=== PATIENT | male | born 1995 | race Caucasian/White ===

== ENCOUNTER 2020-11-10 14:27 | Emergency (ER) | payer OTHER, SELFPAY ==
--- NOTE | ~2020-11-10 | XR_ITS ---
EXAMINATION: XR CHEST CLINICAL INFORMATION: Cough COMPARISON: None TECHNIQUE: Frontal view of the chest was obtained. FINDINGS: The cardiac and mediastinal contours are normal. The lungs are well inflated. The lungs are clear. There is no pleural effusion or pneumothorax. Bony structures are unremarkable. XR/XR chest 1V IMPRESSION: Well-inflated lungs. No evidence of pneumonia.
[2020-11-10 14:35] VITALS: BP 149/96; PULSE 115; RESP 22; TEMP 36.5; O2SAT 93; BMI 17.3
[2020-11-10 15:19] VITALS: PULSE 106; RESP 19; O2SAT 94
[2020-11-10] MEDS: Albuterol/Iprat 2.5/0.5MG 3 ML AMPUL.NEB INHALE ×2 (15:40→16:14)
[2020-11-10 15:41] VITALS: PULSE 101; O2SAT 94
--- NOTE | 2020-11-10 16:08 | PC.NURSE ---
NO DIFF BREATHING, NO RETRACTIONS OR NASAL FLARING. PT FINISHED UPDRAFT TX, SITTING HIGH FOWLERS TAKING SIPS OF WATER. 02 95%, HR 100, NAD AT THIS TIME.
[2020-11-10 16:15] VITALS: PULSE 110; O2SAT 97
--- NOTE | 2020-11-10 16:47 | ED.SOB ---
HPI - SOB/Dyspnea General Chief Complaint: Dyspnea Stated Complaint: asthma Time Seen by Provider: 11/10/20 14:54 History of Present Illness HPI Narrative: Patient complains of asthma flare up with wheezing and chest tightness and shortness of breath similar to other asthma flares, he used his pump and his machine with out significant relief and he comes to the ER feeling short of breath similar to prior asthma flares and wheezing, he has had some coughing, no fever no chills no sputum He denies any recent fever or upper respiratory infection or cough, no leg pain no leg swelling no calf pain Related Data Previous Rx's Medication Instructions Recorded albuterol sulfate 2 puff INHALATION Q4-6H PRN 5 Days 11/10/20 #8.5 g albuterol sulfate 2.5 mg INHALATION Q4H PRN #75 ml 11/10/20 fluticasone furoate-vilanterol 1 inh INHALATION Q24H #60 ea 11/13/20 [Breo Ellipta] prednisone 40 mg PO DAILY #10 tab 11/13/20 Allergies Allergy/AdvReac Type Severity Reaction Status Date / Time amoxicillin Allergy Unknown Anaphylaxis Verified 11/10/20 14:34 mold Allergy Unknown UNKNOWN Verified 11/10/20 14:34 penicillin V Allergy Unknown Anaphylaxis Verified 11/10/20 14:34 Penicillins [PENICILLINS] Allergy Unknown UNKNOWN Verified 11/10/20 14:34 cillins Allergy Unknown anaphylaxis Uncoded 04/05/13 00:00 Review of Systems Review of Systems: Positive for shortness of breath and wheezing Negatives are no fever no chills no dizziness no fainting no chest pain no palpitations no abdominal pain no nausea or vomiting no leg pain no calf pain no leg swelling no rash no numbness or weakness Yes all other systems are reviewed and are negative [facility] Past Medical History Source: nursing notes reviewed Medical History Asthma Social History Social History Household Members: Other Housing: Apartment Alcohol intake: never Smoking Status: Current every day smoker Tobacco Type: Cigarette Cigarettes Per Day: 4 Second Hand Smoke Exposure: Yes service: No Current occupational status: employed Physical Exam Vital Signs: Vital Signs: Last Vital Signs Temp 97.7 F 11/10/20 14:35 Pulse 99 11/10/20 16:50 Resp 18 11/10/20 16:50 BP 123/78 11/10/20 16:50 Pulse Ox 96 11/10/20 16:50 Body Mass Index 17.3 General appearance is no acute distress, calm and cooperative, a and O x3, speaking full sentences The pharynx is clear Neck is supple Respiratory there is prolonged expiration and significant bilateral wheezing, but good air movement, no respiratory distress The heart no murmur auscultated The abdomen is soft nontender Extremities no calf tenderness or swelling, no edema Skin no rash Neuro no focal deficit Course Course Course Narrative: Patient was treated with multiple nebs and steroid Chest x-ray did not show any evidence of pneumonia After treatment patient felt significant relief, his lung exam did show some residual wheezing but no longer prolonged expiration and there was good air movement, patient was speaking full sentences and had no worsening of shortness of breath with short ambulation and was discharged home Discharge Plan Discharge Clinical Impression: Asthma flare Qualifiers: Asthma severity: moderate Asthma persistence: unspecified Qualified Code(s): J45.901 - Unspecified asthma with (acute) exacerbation Patient Disposition: Home, Self-Care Additional Instructions: We treated with steroid and albuterol with very good improvement Because he wanted an antibiotic I gave you a prescription for Zithromax but I would advise waiting a day or 2 and see if all symptoms resolve as the asthma goes away Overuse of antibiotics can create resistance and make it difficult to treat should he get pneumonia Return to ER any time for difficulty breathing, any worse condition or any concerns Prescriptions: New albuterol sulfate 90 mcg/actuation HFA aerosol inhaler 2 puff inhalation Q4-6H PRN (Reason: shortness of breath or wheezing) 5 Days Qty: 8.5 RF: 0 albuterol sulfate 2.5 mg /3 mL (0.083 %) solution for nebulization 2.5 mg inhalation Q4H PRN (Reason: shortness of breath or wheezing) Qty: 75 RF: 0 No Action prednisone 20 mg tablet 40 mg PO DAILY Qty: 10 RF: 0 Breo Ellipta 100-25 mcg/dose blister with device 1 inh inhalation Q24H Qty: 60 RF: 0 Stand Alone Forms: Work/School Release Interventions: ED Discharge Assessment Last Done: 11/10/20 17:11 Discharge Date/Time: 11/10/20 17:14
[2020-11-10 16:50] VITALS: BP 123/78; PULSE 99; RESP 18; O2SAT 96
== END 2020-11-10 17:14 | disposition home or self-care (01) ==
PROVIDERS: Emergency Provider Emergency Medicine; PCP Internal Medicine
DX: J45.901 Unspecified asthma with (acute) exacerbation (principal); F17.210 Nicotine dependence, cigarettes, uncomplicated; Z71.6 Tobacco abuse counseling; Z79.899 Other long term (current) drug therapy
CPT/HCPCS: 71045; 96372; 99284; J1100

== ENCOUNTER 2020-11-10 23:49 | Inpatient (IN) | payer OTHER, SELFPAY ==
[2020-11-10 23:55] VITALS: BP 125/77; PULSE 127; RESP 22; TEMP 36.4; O2SAT 95; BMI 17.2
[2020-11-11] VITALS (9 sets, daily range): BP systolic 108–126; BP diastolic 57–84; PULSE 110–138; RESP 18–24; TEMP 36.4–36.7; O2SAT 93–95
--- NOTE | 2020-11-11 00:27 | ED_ITS ---
HPI - Asthma General Chief Complaint: Asthma Stated Complaint: ASTHMA Source: patient and family Mode of arrival: ambulatory Limitations: no limitations History of Present Illness HPI Narrative: 25-year-old male with past medical history of asthma presents for the 2nd time to the emergency department for asthma exacerbation states after he went home today after his visit, his shortness of breath and chest tightness prevented him from falling asleep. MD complaint: asthma attack and shortness of breath Onset (ago): day(s) Severity: severe and similar to prior Asthma History: childhood onset and history of prior ED visit Related Data Current Asthma Therapy: inhaled bronchodilator and recent oral steroid Previous Rx's Medication Instructions Recorded albuterol sulfate 2 puff INHALATION Q4-6H PRN 5 Days 11/10/20 #8.5 g albuterol sulfate 2.5 mg INHALATION Q4H PRN #75 ml 11/10/20 Allergies Allergy/AdvReac Type Severity Reaction Status Date / Time amoxicillin Allergy Unknown Anaphylaxis Verified 11/10/20 14:34 mold Allergy Unknown UNKNOWN Verified 11/10/20 14:34 penicillin V Allergy Unknown Anaphylaxis Verified 11/10/20 14:34 Penicillins [PENICILLINS] Allergy Unknown UNKNOWN Verified 11/10/20 14:34 cillins Allergy Unknown anaphylaxis Uncoded 04/05/13 00:00 Review of Systems Review of Systems: Constitutional: No Fever, No Chills ENT/Mouth: No Hoarseness, No sore throat, No Rhinorrhea Eyes: No Redness, No Discharge, No Vision Changes Cardiovascular: No Chest Pain, positive SOB, positive Dyspnea on Exertion, No Edema Respiratory: positive Cough, No Sputum, positive Wheezing, Gastrointestinal: No Nausea, No Vomiting, No Diarrhea, No abdominal Pain Genitourinary: No Dysuria, No Hematuria Musculoskeletal: No joint pain, No Myalgias Skin: No rash Neuro: No Weakness, No Numbness, No Headache Psych: No anxiety, depression Heme/Lymph: No Bruising, No Bleeding Endocrine: No Polyuria, No Polydipsia Yes all other systems are reviewed and are negative [facility] Past Medical History Attestation statement: The following information was validated with the patient. Source: old records reviewed Medical History Asthma Social History Social History Alcohol intake: never Smoking Status: Current every day smoker Use of substances other than those prescribed or required for medical reasons: No Advance Directives: No Physical Exam Vital Signs: Vital Signs: Last Vital Signs Temp 97.6 F 11/10/20 23:55 Pulse 127 H 11/10/20 23:55 Resp 22 H 11/10/20 23:55 BP 125/77 11/10/20 23:55 Pulse Ox 95 11/10/20 23:55 Body Mass Index 17.2 Appearance: Alert. Oriented X3. Moderate respiratory distress. Head: Normal external exam. Normocephalic. Atraumatic. No Forrest signs noted. No raccoon eyes noted Eyes: PERRLA. EOMI. Conjunctiva and sclera normal. Eyelids normal. ENT: TM's Normal. Pharynx normal. Uvula midline. Dry mucous membranes. No trismus or drooling noted. No changes in voice. Neck: Normal inspection. Neck supple. No adenopathy. CVS: Tachycardic heart rate and rhythm. Heart sound normal. No murmurs noted. Pulses equal to all extremities. Respiratory: Moderate respiratory distress, tachypneic 24 respirations per minute. Painless inspiration. Lung sounds tight, poor air flow to bilateral bases, inspiratory and expiratory wheezing throughout, no tracheal stridor. Chest nontender. No accessory muscle usage. Abdomen: Soft and nontender. Bowel sounds normal in all 4 quadrants. No distention noted. No organomegaly noted. No visible injury noted. Back: No CVA tenderness. Full range of motion noted. Skin: Skin warm and dry. Normal skin color. Normal skin turgor. No rashes/lesions/lacerations noted. Extremities: No lower extremity edema. Extremities exhibit normal range of motion. Extremities nontender. Neuro: cranial nerves 2-12 intact, no focal neural deficits, strength 5/5 to all extremities, No motor deficit. No sensory deficit. Course Course Course Narrative: 25-year-old male with past medical history of asthma presents for the 2nd time today to the emergency department for asthma exacerbation. 12:45 a.m. discussion with hospitalist regarding admission, patient will be admitted for asthma exacerbation however labs and ABGs are pending at this time. Consultations Consultation #1: dede Time: 00:45 [facility] - Asthma Differential Diagnosis Differential diagnosis: Likely Acute exacerbation and Status asthmaticus Medical Records Attestation: I reviewed the patient's medical records. Lab Data Attestation: I reviewed the patient's lab results. Result diagrams: 11/11/20 00:39 11/11/20 00:39 Labs: Lab Results 11/11/20 11/11/20 11/11/20 Range/Units 00:39 00:39 00:39 WBC 5.4 (4.8-10.8) X10*3/uL RBC 5.74 (4.60-5.80) X10*6/uL Hgb 16.6 (14.0-18.0) g/dl Hct 47.4 (42-52) % MCV 82.6 (80-98) fL MCH 28.9 (27.0-33.0) pg MCHC 35.0 (31.0-36.0) g/dl RDW 12.5 (11.0-16.0) % Plt Count 244 (160-400) X10*3/uL MPV 10.1 (9.4-12.4) fL Immature Gran % (Auto) 0.7 H (0.0-0.4) % Neut % (Auto) 91.9 H (45-73) % Lymph % (Auto) 6.1 L (20-40) % [place] % (Auto) 1.1 L (2-11) % Eos % (Auto) 0.0 (0-4) % Baso % (Auto) 0.2 (0-2) % Lymph # (Auto) 0.3 L (1.2-4.9) X10*3/uL [place] # (Auto) 0.1 (0.1-1.2) X10*3/uL Eos # (Auto) 0.0 (0.0-0.4) X10*3/uL Baso # (Auto) 0.0 (0.0-0.2) X10*3/uL Abs Immat Gran (auto) 0.04 H (0.00-0.03) X10*3/uL Absolute Neuts (auto) 4.9 (2.0-8.3) X10*3/uL Absolute Nucleated RBC 0.000 (0.0-0.012) X10*3/uL Nucleated RBC % (auto) 0.0 (0.0-0.2) /100WBC Smear Tech's Comments VERIFIED Sodium 141 (135-145) mmol/L Potassium 3.6 (3.3-5.1) mmol/L Chloride 105 (96-108) mmol/L Carbon Dioxide 20 L (22-29) mmol/L Anion Gap 20 (12-20) BUN 8 L (9-16) mg/dL Creatinine 0.95 (0.5-1.4) mg/dL Estim Creat Clear Calc 84.0 Estimated GFR > 60 Random Glucose 127 H (60-115) mg/dL Calcium 10.1 (8.4-10.2) mg/dL Magnesium (1.6-2.6) mg/dL COVID-19 (DIONY) Negative (Negative) COVID-19 Clin Com See Note 11/11/20 Range/Units 00:39 WBC (4.8-10.8) X10*3/uL RBC (4.60-5.80) X10*6/uL Hgb (14.0-18.0) g/dl Hct (42-52) % MCV (80-98) fL MCH (27.0-33.0) pg MCHC (31.0-36.0) g/dl RDW (11.0-16.0) % Plt Count (160-400) X10*3/uL MPV (9.4-12.4) fL Immature Gran % (Auto) (0.0-0.4) % Neut % (Auto) (45-73) % Lymph % (Auto) (20-40) % [place] % (Auto) (2-11) % Eos % (Auto) (0-4) % Baso % (Auto) (0-2) % Lymph # (Auto) (1.2-4.9) X10*3/uL [place] # (Auto) (0.1-1.2) X10*3/uL Eos # (Auto) (0.0-0.4) X10*3/uL Baso # (Auto) (0.0-0.2) X10*3/uL Abs Immat Gran (auto) (0.00-0.03) X10*3/uL Absolute Neuts (auto) (2.0-8.3) X10*3/uL Absolute Nucleated RBC (0.0-0.012) X10*3/uL Nucleated RBC % (auto) (0.0-0.2) /100WBC Smear Tech's Comments Sodium (135-145) mmol/L Potassium (3.3-5.1) mmol/L Chloride (96-108) mmol/L Carbon Dioxide (22-29) mmol/L Anion Gap (12-20) BUN (9-16) mg/dL Creatinine (0.5-1.4) mg/dL Estim Creat Clear Calc Estimated GFR Random Glucose (60-115) mg/dL Calcium (8.4-10.2) mg/dL Magnesium 2.4 (1.6-2.6) mg/dL COVID-19 (DIONY) (Negative) COVID-19 Clin Com ECG Data Attestation: I personally reviewed and interpreted this ECG as follows: ECG interpretation date: 11/11/20 ECG interpretation time: 01:16 Interpretation: Vent. rate 105 BPM RI interval 120 ms QRS duration 86 ms QT/QTc 330/436 ms P-R-T axes 76 97 58 Sinus tachycardia Rightward axis Borderline ECG When compared with ECG of 08-MAY-2008 00:31, PREVIOUS ECG IS PRESENT Discharge Plan Discharge Clinical Impression: Asthma with acute exacerbation Qualifiers: Asthma severity: moderate Asthma persistence: persistent Qualified Code(s): J45.41 - Moderate persistent asthma with (acute) exacerbation Patient Disposition: Admitted As Inpatient
--- NOTE | 2020-11-11 00:29 | ECG_ITS ---
Test Reason : SOB Blood Pressure : / mmHG Vent. Rate : 105 BPM Atrial Rate : 105 BPM P-R Int : 120 ms QRS Dur : 086 ms QT Int : 330 ms P-R-T Axes : 076 097 058 degrees QTc Int : 436 ms Sinus tachycardia Rightward axis Borderline ECG When compared with ECG of 08-MAY-2008 00:31, No significant changes seen Referred By: Odessa Alex Electronically Signed By:SHEYLA SMALLS MD
[2020-11-11] MEDS: 0.9 % Sodium Chloride 1,000 ML 999 ML IVCONT (00:50)
[2020-11-11] MEDS: Magnesium Sulfate/H2O 2 GM/50 ML PIGGYBACK IV (00:50)
[2020-11-11 00:53] LABS: Basophils Percent Auto 0.2 % (0-2); Hematocrit 47.4 % (42-52); Hemoglobin 16.6 g/dl (14.0-18.0); Imm Gran Abs Auto 0.04 X10*3/uL (0.00-0.03); Imm Gran Pct Auto 0.7 % (0.0-0.4); Lymphocytes Absolute Auto 0.3 X10*3/uL (1.2-4.9); Lymphocytes Percent Auto 6.1 % (20-40); MANUAL DIFF FLAG SCAN; Mean Corpuscular Hemoglobin 28.9 pg (27.0-33.0); Mean Corpuscular Volume 82.6 fL (80-98); Mean Platelet Volume 10.1 fL (9.4-12.4); Monocytes Absolute Auto 0.1 X10*3/uL (0.1-1.2); Monocytes Percent Auto 1.1 % (2-11); Neutrophils Absolute Auto 4.9 X10*3/uL (2.0-8.3); Neutrophils Percent Auto 91.9 % (45-73); Platelet Count 244 X10*3/uL (160-400); Red Blood Count 5.74 X10*6/uL (4.60-5.80); Red Cell Distribution Width 12.5 % (11.0-16.0); SCAN SMEAR FLAG 1; White Blood Count 5.4 X10*3/uL (4.8-10.8)
[2020-11-11 01:00] LABS: COVID-19 Test Negative (Negative)
[2020-11-11 01:09] LABS: Anion Gap 20 (12-20); Blood Urea Nitrogen 8 mg/dL (9-16); Calcium 10.1 mg/dL (8.4-10.2); Carbon Dioxide 20 mmol/L (22-29); Chloride 105 mmol/L (96-108); Estimated Glomerular Filt Rate > 60; Glucose Random 127 mg/dL (60-115); Magnesium 2.4 mg/dL (1.6-2.6); Potassium 3.6 mmol/L (3.3-5.1); Sodium 141 mmol/L (135-145)
[2020-11-11 01:10] LABS: SLIDE REVIEW VERIFIED
[2020-11-11 01:55] LABS: ABG Refer to POC result
[2020-11-11 01:56] LABS: ABG Base Excess -4.6 mmol/L; ABG HCO3 18 mmol/L (22-26); ABG pCO2 28 mmHg (32-45); ABG pCO2 TC 28 mmHg (32-45); ABG pH 7.41 (7.35-7.45); ABG pH TC 7.41 (7.35-7.45); ABG pO2 85 mmHg (83-108); ABG pO2 TC 83 (83-108)
[2020-11-11] MEDS: Albuterol Sulfate (0.083%) 2.5 MG/3 ML VIAL.NEB 10 MG INHALE (01:56)
--- NOTE | 2020-11-11 02:46 | P.HPHOSP_ITS ---
History of Present Illness Date of Service: 11/11/20 Chief Complaint: SOB 25-year-old male with a past medical history of asthma-> never intubated; presented to the hospital in the event of shortness of breath. Patient mentioned that this morning he had shortness of breath which was not improving with his home inhalers/nebulizer subsequently came to the ER in the afternoon was given a dose of steroid and sent home on prednisone. Later in the evening he had again increased shortness of breath not improving with his aunt inhalers took a dose of oral prednisone at home and as symptoms were not improving decid ed to come to the ER for further evaluation. Denies any fever chills cough. Denies any chest pain palpitations. Denies any numbness tingling. The patient reports that he has allergies to pollen and usually gets his asthma acted out during the pollen season. Uses he hardly uses 3-4 times of albuterol inhaler in a month. Review of all other systems is negative except mentioned above ER course: Per ER team patient was noted to be wheezing bilaterally both inspiratory and expiratory. Patient was given magnesium, nebulizers with improvement in breathing. Patient also reported that his shortness of breath improved after the treatment. Patient was noted to be tachycardic. Admitted to the hospital for further management. [facility]LY [facility] Medical History Asthma Social History Alcohol intake: never Smoking Status: Current every day smoker Use of substances other than those prescribed or required for medical reasons: No Advance Directives: No Meds Allergies Allergy/AdvReac Type Severity Reaction Status Date / Time amoxicillin Allergy Unknown Anaphylaxis Verified 11/10/20 14:34 mold Allergy Unknown UNKNOWN Verified 11/10/20 14:34 penicillin V Allergy Unknown Anaphylaxis Verified 11/10/20 14:34 Penicillins [PENICILLINS] Allergy Unknown UNKNOWN Verified 11/10/20 14:34 cillins Allergy Unknown anaphylaxis Uncoded 04/05/13 00:00 Active Medications: Current Medications Generic Name Dose Route Start Last Admin Trade Name Freq PRN Reason Stop Dose Admin Albuterol/Ipratropium 3 ml 11/11/20 02:44 Albuterol/Iprat 2.5/0.5mg 3 Ml Ampul.Neb INHALE RQ4H PRN Shortness of Breath/Wheezing Albuterol/Ipratropium 3 ml 11/11/20 08:00 Albuterol/Iprat 2.5/0.5mg 3 Ml Ampul.Neb INHALE RQ6H WHILE AWAKE [facility] Famotidine 20 mg 11/11/20 09:00 Famotidine 20 Mg Tablet PO DAILY [facility] Methylprednisolone Sodium Succinate 40 mg 11/11/20 08:00 Methylprednisolone Sod Succ 40 Mg/Ml Vial IVPUSH Q8H [facility] Home Medications Medication Instructions Recorded Confirmed Last Taken Type azithromycin 1 tab PO DIRECTED 11/11/20 11/11/20 11/10/20 History prednisone 3 tab PO DAILY 11/11/20 11/11/20 11/10/20 History Physical Exam Vital Signs and Narrative: Vital Signs: Last Vital Signs Temp 97.6 F 11/10/20 23:55 Pulse 114 H 11/11/20 01:57 Resp 22 H 11/10/20 23:55 BP 125/77 11/10/20 23:55 Pulse Ox 95 11/10/20 23:55 Body Mass Index 17.2 Gen: Appears be in no acute distress. Able to speak in full sentences. Weaning comfortably. HEENT: NCAT, Moist mucosa. Pulmonary: Both inspiratory and expiratory wheezes noticed throughout. Moving air CVS: Normal S1-S2 Abdomen: BS+, Soft, Nontender Extremities: Warm well perfused Neuro: Alert and awake. Results Labs CBC and Chem 7: 11/11/20 07:36 11/11/20 07:36 Labs: Laboratory Results - last 24 hr 11/11/20 11/11/20 11/11/20 00:39 00:39 00:39 MCV 82.6 MCH 28.9 MCHC 35.0 RDW 12.5 Plt Count 244 MPV 10.1 Immature Gran % (Auto) 0.7 H Neut % (Auto) 91.9 H Lymph % (Auto) 6.1 L [place] % (Auto) 1.1 L Eos % (Auto) 0.0 Baso % (Auto) 0.2 Lymph # (Auto) 0.3 L [place] # (Auto) 0.1 Eos # (Auto) 0.0 Baso # (Auto) 0.0 Abs Immat Gran (auto) 0.04 H Absolute Neuts (auto) 4.9 Absolute Nucleated RBC 0.000 Nucleated RBC % (auto) 0.0 Smear Tech's Comments VERIFIED O2 Saturation ABG pH at Pt Temp ABG pH (Temp Correct) ABG pCO2 at Pt Temp ABG pCO2 (Temp Corrct ABG pO2 at Pt Temp ABG pO2 (Temp Correct ABG HCO3 ABG Base Excess (Actual) Anion Gap 20 Estim Creat Clear Calc 84.0 Estimated GFR > 60 Random Glucose 127 H Calcium 10.1 Magnesium COVID-19 (DIONY) Negative COVID-19 Clin Com See Note 11/11/20 11/11/20 00:39 01:48 MCV MCH MCHC RDW Plt Count MPV Immature Gran % (Auto) Neut % (Auto) Lymph % (Auto) [place] % (Auto) Eos % (Auto) Baso % (Auto) Lymph # (Auto) [place] # (Auto) Eos # (Auto) Baso # (Auto) Abs Immat Gran (auto) Absolute Neuts (auto) Absolute Nucleated RBC Nucleated RBC % (auto) Smear Tech's Comments O2 Saturation 97.0 ABG pH at Pt Temp 7.41 ABG pH (Temp Correct) 7.41 ABG pCO2 at Pt Temp 28 L ABG pCO2 (Temp Corrct 28 L ABG pO2 at Pt Temp 85 ABG pO2 (Temp Correct 83 ABG HCO3 18 L ABG Base Excess (Actual) -4.6 Anion Gap Estim Creat Clear Calc Estimated GFR Random Glucose Calcium Magnesium 2.4 COVID-19 (DIONY) COVID-19 Clin Com Assessment and Plan (1) Asthma with acute exacerbation: Qualifiers: Asthma persistence: persistent Asthma severity: moderate Qualified Code(s): J45.41 - Moderate persistent asthma with (acute) exacerbation Status: Acute 25-year-old male with a past medical history of asthma, pollen and Allergy presented to the hospital with a chief complaint of shortness of breath. Noted to be in acute asthma exacerbation. Admitted to the hospital for further management. Acute asthma exacerbation: Continue Solu-Medrol 40 mg IV t.i.d.. Nebulizations standing and p.r.n.. Pepcid p.r.n. for GI prophylaxis. Tachycardia: Likely in the setting of nebulizer treatment. Will continue to monitor on telemetry. Patient asymptomatic. DVT prophylaxis: SCD boots Code status: Full code
[2020-11-11 07:52] LABS: Hematocrit 43.2 % (42-52); Imm Gran Abs Auto 0.08 X10*3/uL (0.00-0.03); Imm Gran Pct Auto 0.5 % (0.0-0.4); Lymphocytes Absolute Auto 0.5 X10*3/uL (1.2-4.9); Lymphocytes Percent Auto 3.2 % (20-40); MANUAL DIFF FLAG SCAN; Mean Corpuscular HGB Conc 34.7 g/dl (31.0-36.0); Mean Corpuscular Hemoglobin 28.8 pg (27.0-33.0); Mean Corpuscular Volume 82.9 fL (80-98); Monocytes Absolute Auto 0.3 X10*3/uL (0.1-1.2); Monocytes Percent Auto 2.1 % (2-11); Neutrophils Absolute Auto 13.7 X10*3/uL (2.0-8.3); Neutrophils Percent Auto 94.2 % (45-73); Platelet Count 239 X10*3/uL (160-400); Red Blood Count 5.21 X10*6/uL (4.60-5.80); Red Cell Distribution Width 12.8 % (11.0-16.0); SCAN SMEAR FLAG 1; White Blood Count 14.6 X10*3/uL (4.8-10.8)
[2020-11-11] MEDS: Albuterol/Iprat 2.5/0.5MG 3 ML AMPUL.NEB INHALE ×3 (07:58→21:20)
[2020-11-11 08:21] LABS: Anion Gap 13 (12-20); Blood Urea Nitrogen 9 mg/dL (9-16); Calcium 9.4 mg/dL (8.4-10.2); Carbon Dioxide 21 mmol/L (22-29); Chloride 110 mmol/L (96-108); Creatinine Clr Calc Pharmacy 98.5; Estimated Glomerular Filt Rate > 60; Glucose Random 111 mg/dL (60-115); Potassium 3.4 mmol/L (3.3-5.1); Sodium 141 mmol/L (135-145)
[2020-11-11] MEDS: Famotidine 20 MG TABLET PO (08:24)
[2020-11-11] MEDS: methylPREDNISolone Sod Succ 40 MG/ML VIAL IVPUSH ×3 (08:24→23:46)
[2020-11-11] MEDS: 0.9 % Sodium Chloride Flush 3 ML SYRINGE IVFLUSH ×2 (08:25→16:34)
[2020-11-11] MEDS: Acetaminophen 325 MG TABLET 650 MG PO ×2 (08:50→23:47)
[2020-11-11] MEDS: Nicotine 14 MG PATCH.TD24 TRANSDERMA (10:58)
--- NOTE | 2020-11-11 12:35 | P.CDIC_ITS ---
CDI Concurrent Query Service Date: 11/18/20 Documentation Clarification: Please clarify if you are treating a proba ble/suspected/likely or confirmed: BMI Underweight Please specify if known or other/undetermined Provider Response: Mild Protein-Calorie Malnutrition PLEASE DO NOT DELETE/MODIFY EXISTING CONTENT Additional information is needed in order to code to the highest accuracy and appropriate Severity of Illness (SOI). Please clarify the information noted below in your progress notes and discharge summary. Risk Factors/Clinical Indicators/Treatments Body mass index: 17.3 CDS: Stefanie Ceballos [facility], CDIS Contact Number: [phone] Please Review the information above and exercise your independent professional judgment in responding to the query. If you concur, pleas document in the PROG RESS NOTES and DISCHARGE SUMMARY. If you do not agree with the query, please document in the query above. THIS QUERY IS PART OF THE PERMANENT MEDICAL RECORD
--- NOTE | 2020-11-11 14:09 | MHC.CM.PN ---
Attempted to meet with patient in regards to discharge planning. Nursing care currently being provided. Will attempt to meet again. Continue to monitor for d/c needs.
[2020-11-11] MEDS: guaiFEN/Codeine SF 200/20/10ML 10 ML LIQUID 5 ML PO (16:32)
--- NOTE | 2020-11-11 19:39 | PC.NURSE ---
Pt found sitting upright in bed, speaking full sentences. Pt denies pain at this time, reports some relief of SOB. VSS. Awaiting bed assignment. Continue to monitor.
--- NOTE | 2020-11-11 19:55 | PC.NURSE ---
This RN calling [facility] to give report, [facility] to call back when able.
--- NOTE | 2020-11-11 21:21 | PC.NURSE ---
Pt requesting 1999 UPD. Pt medicated per MAR with UPD. Continue to monitor.
--- NOTE | 2020-11-11 22:10 | PC.NURSE ---
Report given to [facility].
--- NOTE | 2020-11-11 22:10 | PC.NURSE ---
Hospitalist contacted regarding tachycardia after UPD. Per hospitalist, verbal order for NS @ 100 ml/hr. IVF hung. Report given to Josi. Pt being prepared for transport to floor.
--- NOTE | 2020-11-11 22:22 | PC.NURSE ---
IVF infusing at 100 ml/hr per verbal order from .
[2020-11-11] MEDS: 0.9 % Sodium Chloride 1,000 ML 75 ML IVCONT (23:50)
[2020-11-12] VITALS (10 sets, daily range): BP systolic 114–140; BP diastolic 57–79; PULSE 86–120; RESP 16–21; TEMP 36.2–37.4; O2SAT 90–98
--- NOTE | 2020-11-12 | ECG_ITS ---
Test Reason : tachy Blood Pressure : / mmHG Vent. Rate : 127 BPM Atrial Rate : 127 BPM P-R Int : 094 ms QRS Dur : 074 ms QT Int : 310 ms P-R-T Axes : 078 098 043 degrees QTc Int : 450 ms Sinus tachycardia with short NC Rightward axis Borderline ECG No previous ECGs available Referred By: Tahir Hathaway Electronically Signed By:SHEYLA SMALLS MD
[2020-11-12] MEDS: Albuterol/Iprat 2.5/0.5MG 3 ML AMPUL.NEB INHALE (01:55)
--- NOTE | 2020-11-12 02:08 | P.EN_ITS ---
Event Note Date of Service: 11/13/20 Event Note: tachycardia: Patient on Heart rate went up to 150s post albute rol Atrovent nebulization treatment. will obtain TSH Will change DuoNebs to Xopenex cardiology consult patient has been persistently tachycardic mostly in 120s; denies palpitations. Will also obtain a D-dimer asthma exacerbation: Patient is still persistently wheezing. Will also consult pulmonology
--- NOTE | 2020-11-12 02:14 | PC.NURSE ---
Pt. has been tachycardic 120's most of the night. After Duoneb treatment went up to 160. MD notified. EKG ordered and blood test ordered. Cardiology and pulmonology consults put in.
[2020-11-12 02:43] LABS: D Dimer 205 NG/ML
[2020-11-12 03:12] LABS: Thyroid Stimulating Hormone 0.45 uIU/mL (0.32-4.0)
[2020-11-12] MEDS: Nicotine 14 MG PATCH.TD24 TRANSDERMA (07:39)
[2020-11-12] MEDS: Famotidine 20 MG TABLET PO (07:40)
[2020-11-12] MEDS: methylPREDNISolone Sod Succ 40 MG/ML VIAL IVPUSH ×2 (07:40→15:32)
[2020-11-12] MEDS: 0.9 % Sodium Chloride Flush 3 ML SYRINGE IVFLUSH ×2 (07:40→15:33)
[2020-11-12] MEDS: guaiFEN/Codeine SF 200/20/10ML 10 ML LIQUID 5 ML PO (07:46)
--- NOTE | 2020-11-12 08:50 | MHC.CM.PN ---
CM met with Patient at bedside. Patient lives in an apartment with His Mother and he is functionally independent and working department head. Goal for dc is home no services and CM has initiated and will follow for dc planning. PCP is Dr. Bridgette Kinney.
--- NOTE | 2020-11-12 09:35 | P.EN_ITS ---
Event Note Date of Service: 11/12/20 Event Note: THIS PATIENT WAS SEEN BY ME THIS MORNING FOR PULMONARY CONSULT. COMPLETE NOTE IS DICTATED. A: ACUTE EXACERBATION OF BRONCHIAL ASTHMA, IMPROVED AND STABLE AT THIS TIME. PATIENT HAS HISTORY OF LONGSTANDING INTERMITTENT BRONCHIAL ASTHMA PROBABLY RELATED TO ENVIRONMENTAL ALLERGIES. HE HAS HISTORY OF SMOKING AND MAY HAVE DEVELOPED TO CHRONIC OBSTRUCTIVE PULMONARY DISEASE STAGE ALSO. P: SWITCH TO IV SOLU-MEDROL TO PREDNISONE 40 MG A DAY FOR 5 DAYS. HE SHOULD COMPLETE COURSE OF Z-IVONNE. BREO-201 INHALATION DAILY TO CONTINUE OUTPATIENT. XOPENEX MDI 2 PUFFS Q 4-6 HOURS P.R.N.. QUIT SMOKING. AND FOR THIS HE SHOULD BE SENT HOME ON NICOTINE PATCH. PATIENT WOULD NEED CLOSE FOLLOW-UP FOR HIS MANAGEMENT, FOR THIS HE CAN GO TO HIS ACCOUNTS PAYABLE REPRESENTATIVE TO IN [place], OR WE WILL BE GLAD TO SEE HIM IN THE PULMONARY OFFICE FOR ONGOING MANAGEMENT.
[2020-11-12] MEDS: Acetaminophen 325 MG TABLET 650 MG PO (09:42)
--- NOTE | 2020-11-12 11:26 | P.CONCA_ITS ---
History of Present Illness History of Present Illness Date of Service: 11/12/20 Requesting physician: Tahir Hathaway Consult reason: other (Tachycardia) Chief complaint: ASTHMA EXACERBATION Narrative: Thank you for asking us to see Peter Macdonald in cardiology consultation today for tachycardia. He is a pleasant 25-year-old man with prior history of asthma and allergies. He said recently started having more allergic reaction subsequently started getting more short of breath and started having asthmatic bronchitis and was not able to breathe. He therefore came to the emergency room very was noted to be severe exacerbation. On presentation was noted to have sinus tachycardia and with overnight with coughing he was noted to have significantly elevated heart rate. He said he noticed up to 180 beats per minute. Monitoring up to 150 beats per minute and noted to be sinus tachycardia. There were no other arrhythmias noted. His TSH and D-dimer was checked which was within acceptable limits. He denies any palpitations related to it. He was initially started on albuterol therapy which she is now switched to Xopenex. His heart rate when I was examining was in 115-120 beats per minute range Review of Systems Constitutional: Constitutional: Reports no additional constitutional complaints Cardiovascular: Cardiovascular: Reports no additional cardiovascular complaints and Reports dyspnea Respiratory: Respiratory: Reports excessive phlegm production, Reports dyspnea and Reports wheezing Gastrointestinal: Gastrointestinal: Reports no additional gastrointestinal complaints Genitourinary: Genitourinary: Reports no additional male genitourinary complaints Musculoskeletal: Musculoskeletal: Reports no additional musculoskeletal compl aints Neurologic: Reports system reviewed and no additional complaints, except as documented Psychiatric: Psychiatric: Reports no additional psychiatric complaints Endocrine: Endocrine: Reports no additional endocrine complaints Allergic/Immunologic: Allergic/Immunologic: Reports wheezing [facility] Past Medical History Medical History Asthma Social History Social History Household Members: Other Household Members Other:: Mother Housing: Apartment Do you presently have visiting nurse or other home services: No Alcohol intake: never Smoking Status: Current every day smoker Tobacco Type: Cigarette Cigarettes Per Day: 4 Smoked in Last 30 Days: Yes Patient Interested in Nicotine Replacement: Yes Second Hand Smoke Exposure: Yes Use of substances other than those prescribed or required for medical reasons: No Currently Displaying Signs/Symptoms of Drug Intoxication Withdrawal: No Have you been hit, kicked, punched, or otherwise hurt by someone within the past year? If so, by whom?: No Do you feel safe in your current relationship?: No Is there a partner from a previous relationship who is making you feel unsafe now?: No Are you made to feel afraid or neglected: No Advance Directives: No Do you have thoughts of harming others: None Do you have a plan to hurt others: No Plan Recently lost weight without trying: No service: No Current occupational status: employed Meds Allergies Allergy/AdvReac Type Severity Reaction Status Date / Time amoxicillin Allergy Unknown Anaphylaxis Verified 11/10/20 14:34 mold Allergy Unknown UNKNOWN Verified 11/10/20 14:34 penicillin V Allergy Unknown Anaphylaxis Verified 11/10/20 14:34 Penicillins [PENICILLINS] Allergy Unknown UNKNOWN Verified 11/10/20 14:34 cillins Allergy Unknown anaphylaxis Uncoded 04/05/13 00:00 Active Medications: Current Medications Generic Name Dose Route Start Last Admin Trade Name Freq PRN Reason Stop Dose Admin Acetaminophen 650 mg 11/11/20 02:45 11/12/20 09:42 Acetaminophen 325 Mg Tablet PO 650 mg Q6H PRN Administration Pain, Mild (Pain Scale 1-3) Famotidine 20 mg 11/11/20 09:00 11/12/20 07:40 Famotidine 20 Mg Tablet PO 20 mg DAILY ARLIN Administration Guaifenesin/Codeine Phosphate 5 ml 11/11/20 16:30 11/12/20 07:46 Guaifen/Codeine Sf 200/20/10ml 10 Ml Liquid PO 5 ml Q4H PRN Administration Cough Levalbuterol HCl 1.25 mg 11/12/20 08:00 11/12/20 07:27 Levalbuterol Hcl 1.25 Mg/0.5 Ml Vial.Neb INHALE 1.25 mg RTID ARLIN Administration Levalbuterol HCl 1.25 mg 11/12/20 02:07 11/12/20 07:24 Levalbuterol Hcl 1.25 Mg/0.5 Ml Vial.Neb INHALE 1.25 mg Q3H PRN Administration Shortness of Breath/Wheezing Methylprednisolone Sodium Succinate 40 mg 11/11/20 08:00 11/12/20 07:40 Methylprednisolone Sod Succ 40 Mg/Ml Vial IVPUSH 40 mg Q8H ARLIN Administration Nicotine 14 mg 11/11/20 11:00 11/12/20 07:39 Nicotine 14 Mg Patch.Td24 TRANSDERMA 14 mg DAILY ARLIN Administration Sodium Chloride 3 ml 11/11/20 08:00 11/12/20 07:40 0.9 % Sodium Chloride Flush 3 Ml Syringe IVFLUSH 3 ml QSHIFT ARLIN Administration Home Medications Medication Instructions Recorded Confirmed Last Taken Type azithromycin 1 tab PO DIRECTED 11/11/20 11/11/20 11/10/20 History prednisone 3 tab PO DAILY 11/11/20 11/11/20 11/10/20 History Physical Exam Vital Signs: Vital Signs: Last Vital Signs Temp 97.9 F 11/12/20 07:15 Pulse 100 11/12/20 07:25 Resp 19 11/12/20 07:15 BP 114/66 11/12/20 07:15 Pulse Ox 93 11/12/20 07:15 Body Mass Index 17.2 Const: General: cooperative, comfortable and acute distress mild and respiratory Nutritional Appearance: underweight Orientation/consciousness: patient oriented x3 Limitations: no limitations HENMT: Head: Yes normocephalic and Yes atraumatic Neck: Neck: Yes trachea midline, Yes supple and Yes no JVD Chest: Chest palpation & inspection: normal inspection of the chest Resp: Effort & Inspection: normal respiratory effort Auscultation: rhonchi throughout and breath sounds absent bilateral (Bases) Cardio: Jugular venous distension: no JVD Palpation: normal PMI Rate: regular rate and tachycardic Rhythm: regular rhythm Heart sounds: S1 normal heart sound present and S2 normal heart sound present GI: Auscultation: normal bowel sounds Skin: General skin exam: no rashes or lesions noted Neuro: General: patient oriented x3 and no focal motor deficits Extrem: General: Yes no clubbing, cyanosis or edema Psych: Appearance: grossly normal Results Labs and Meds Result diagrams: 11/11/20 07:36 11/11/20 07:36 Lab results: Laboratory Results - last 24 hr 11/12/20 11/12/20 02:13 02:13 D-Dimer 205 TSH 0.45 EKG shows sinus tachycardia Assessment and Plan (1) Sinus tachycardia: Status: Acute Sinus tachycardia which appears to be as a result of therapy with albuterol and possibly underlying acute medical condition with asthma exacerbation. Response appears to be slightly exaggerated, however there is no other obvious secondary etiology. Agree with switch to Xopenex therapy. Continue to treat asthma exacerbation aggressively. Also consider to maintain adequate hydration. No other therapy is indicated at this point in time. Patient says his usual resting heart rate when he is in normal state is in the 90s. Benign nature of the sinus tachycardia was discussed with him. He felt reassured. No further workup or interventions required. Thank you for allowing me to partake in his care. Will sign of the case
--- NOTE | 2020-11-12 14:19 | HO.PM.IMPN ---
Subjective Subjective Date of Service: 11/12/20 Interval History: still sob Cardiovascular Cardiovascular: Reports no additional cardiovascular complaints Gastrointestinal Gastrointestinal: Reports no additional gastrointestinal complaints Physical Exam Vital Signs: Vital Signs: Last Vital Signs Temp 97.5 F 11/12/20 11:47 Pulse 107 H 11/12/20 11:47 Resp 21 H 11/12/20 11:47 BP 124/57 L 11/12/20 11:47 Pulse Ox 93 11/12/20 11:47 Body Mass Index 17.2 General: AO X 3, no acute distress while resting, but minimally talkative Resp: diminished, wheezes, prolonged expiration CVS: S1,S2,Rapid GI: soft, non tender, non distended Neuro: motor grossly intact Psych: appropriate affect Objective Data Current Medications Generic Name Dose Route Start Last Admin Trade Name Freq PRN Reason Stop Dose Admin Acetaminophen 650 mg 11/11/20 02:45 11/12/20 09:42 Acetaminophen 325 Mg Tablet PO 650 mg Q6H PRN Administration Pain, Mild (Pain Scale 1-3) Famotidine 20 mg 11/11/20 09:00 11/12/20 07:40 Famotidine 20 Mg Tablet PO 20 mg DAILY ARLIN Administration Guaifenesin/Codeine Phosphate 5 ml 11/11/20 16:30 11/12/20 07:46 Guaifen/Codeine Sf 200/20/10ml 10 Ml Liquid PO 5 ml Q4H PRN Administration Cough Levalbuterol HCl 1.25 mg 11/12/20 08:00 11/12/20 07:27 Levalbuterol Hcl 1.25 Mg/0.5 Ml Vial.Neb INHALE 1.25 mg RTID ARLIN Administration Levalbuterol HCl 1.25 mg 11/12/20 02:07 11/12/20 11:40 Levalbuterol Hcl 1.25 Mg/0.5 Ml Vial.Neb INHALE 1.25 mg Q3H PRN Administration Shortness of Breath/Wheezing Methylprednisolone Sodium Succinate 40 mg 11/11/20 08:00 11/12/20 07:40 Methylprednisolone Sod Succ 40 Mg/Ml Vial IVPUSH 40 mg Q8H ARLIN Administration Nicotine 14 mg 11/11/20 11:00 11/12/20 07:39 Nicotine 14 Mg Patch.Td24 TRANSDERMA 14 mg DAILY ARLIN Administration Sodium Chloride 3 ml 11/11/20 08:00 11/12/20 07:40 0.9 % Sodium Chloride Flush 3 Ml Syringe IVFLUSH 3 ml QSHIFT ARLIN Administration Labs CBC & Chem 7: 11/11/20 07:36 11/11/20 07:36 Assessment and Plan (1) Asthma with acute exacerbation: Status: Acute Assessment and Plan: 25M presented with sob acute asthma exacerbation still sob, still tight, still significant tachycardia, will continue inpatient monitoring, iv solumedrol, xopenex, on dc will add breo smoking cesssarion - nicoderm
--- NOTE | 2020-11-12 15:57 | CONS_ITS ---
DATE OF SERVICE: 11/12/2020 HISTORY OF PRESENT ILLNESS: This 25-year-old male, has been admitted since yesterday with acute shortness of breath and persistent wheezing for a few days. He was seen earlier yesterday in the emergency room and treated for acute exacerbation of bronchial asthma, sent home on prednisone and Z-Haris. However, he returned in the evening because of increased shortness of breath. During all this time, he did not have fever or chills or any chest pain. He does have mild cough with expectorating yellowish colored phlegm. The patient denies having had any respiratory infection or being exposed to any sick person. PAST MEDICAL HISTORY: Bronchial asthma for many years, but mostly has been mild and intermittent and he uses ProAir 2 puffs q.4-6 hours on a p.r.n. basis. He has been seeing an clinical engineer physician in [place], but has not seen him for the last 2+ years. In the remote past, he was seeing Dr. Brand, an ENT specialist over here at [facility], who had done skin testing and started him on immunotherapy, but the patient did not go through that except for initial 1 or 2 visits. The patient claims that his symptoms become somewhat worsen, change of weather, but he has not had any acute attacks and he has never been intubated. PERSONAL HISTORY: He smokes about 4 or 5 cigarettes a day. Denies smoking any marijuana. Also, denies using electronic cigarettes. REVIEW OF SYSTEMS: Essentially negative except for the respiratory symptoms as described above. PHYSICAL EXAMINATION: GENERAL: 25-year-old gentleman of a thin build, is relatively comfortable this morning. VITAL SIGNS: Respiratory rate is only 18 at this time. He is speaking full sentences without any distress. EAR, NOSE, THROAT EXAMINATION: Normal. NECK: No JVD. Carotids normal. Trachea midline. CHEST: The chest is somewhat flat with percussion note is hyper-resonant. Breath sounds distant. No active wheezes or crepitations are heard at this time. CARDIAC: Sounds are normal. Rhythm regular. No murmurs. His rate is somewhat fast, currently 103 per minute. ABDOMEN: Flat, soft, and nontender. EXTREMITIES: No edema or varicosities. Peripheral pulses normal. There is no clubbing of the fingers. DIAGNOSTIC DATA: Chest x-ray shows well inflated lungs and no infiltrates. LABORATORY DATA: White cell count on admission 5.4 and this morning is 14.6, probably steroid effect. Eosinophil count is 0. CLINICAL IMPRESSION: 1. Acute exacerbation of bronchial asthma, improved at this time. 2. Chronic intermittent bronchial asthma, probably due to environmental allergies. RECOMMENDATIONS: As his symptoms are fully controlled that time, I would suggest we can switch him to prednisone 40 mg a day, which he would take for 5 days. Complete the course of Z-Haris. He should be on combination of inhaled corticosteroids/LABA such as Advair or Symbicort, but while in the hospital, he can be on Breo - 200 one inhalation daily. Because of his relative tachycardia, he should use Xopenex 2 puffs q.4-6 hours p.r.n. for acute attack. He would need close followup as outpatient. He can make appointment with his clinical engineer, Dr. Wallace and should follow up with him closely and alternatively, he can make appointment to our pulmonary office here and should be followed closely for control of his asthma. Thank you very much for asking me to see this patient. MD CHARLIE Aguilar/MATIAS / [phone]
[2020-11-13] VITALS (7 sets, daily range): BP systolic 113–148; BP diastolic 63–93; PULSE 82–96; RESP 18; TEMP 36.7–36.9; O2SAT 91–93
[2020-11-13] MEDS: 0.9 % Sodium Chloride Flush 3 ML SYRINGE IVFLUSH ×3 (00:11→15:26)
[2020-11-13] MEDS: methylPREDNISolone Sod Succ 40 MG/ML VIAL IVPUSH ×3 (00:11→15:26)
[2020-11-13] MEDS: Acetaminophen 325 MG TABLET 650 MG PO (06:41)
[2020-11-13 06:50] LABS: Basophils Percent Auto 0.1 % (0-2); Hematocrit 46.5 % (42-52); Hemoglobin 15.7 g/dl (14.0-18.0); Imm Gran Abs Auto 0.14 X10*3/uL (0.00-0.03); Imm Gran Pct Auto 0.9 % (0.0-0.4); Lymphocytes Absolute Auto 0.8 X10*3/uL (1.2-4.9); MANUAL DIFF FLAG SCAN; Mean Corpuscular HGB Conc 33.8 g/dl (31.0-36.0); Mean Corpuscular Hemoglobin 28.5 pg (27.0-33.0); Mean Corpuscular Volume 84.5 fL (80-98); Mean Platelet Volume 10.6 fL (9.4-12.4); Monocytes Absolute Auto 0.3 X10*3/uL (0.1-1.2); Monocytes Percent Auto 2.2 % (2-11); Neutrophils Absolute Auto 14.4 X10*3/uL (2.0-8.3); Neutrophils Percent Auto 91.8 % (45-73); Platelet Count 267 X10*3/uL (160-400); Red Cell Distribution Width 13.2 % (11.0-16.0); SCAN SMEAR FLAG 1; White Blood Count 15.7 X10*3/uL (4.8-10.8)
[2020-11-13 07:45] LABS: Blood Urea Nitrogen 18 mg/dL (9-16); Calcium 9.9 mg/dL (8.4-10.2); Creatinine Clr Calc Pharmacy 98.5; Estimated Glomerular Filt Rate > 60; Glucose Fasting 105 mg/dL (60-99)
[2020-11-13 07:48] LABS: SLIDE REVIEW VERIFIED
[2020-11-13 08:04] LABS: Anion Gap 15 (12-20); Carbon Dioxide 20 mmol/L (22-29); Chloride 108 mmol/L (96-108); Potassium 4.7 mmol/L (3.3-5.1); Sodium 138 mmol/L (135-145)
[2020-11-13] MEDS: Nicotine 14 MG PATCH.TD24 TRANSDERMA (08:33)
[2020-11-13] MEDS: Famotidine 20 MG TABLET PO (08:33)
--- NOTE | 2020-11-13 09:46 | P.PNPL_ITS ---
Subjective Subjective Date of Service: 11/13/20 Principal diagnosis: BR. aSTHMA Interval history: THIS 25 YEARS OLD GENTLEMAN ADMITTED WITH ACUTE EXACERBATION OF THE BRONCHIAL ASTHMA/COPD. HAS IMPROVED SIGNIFICANTLY AND DENIES ANY DISTRESS THIS MORNING. HE IS OFF OXYGEN. ANXIOUS TO GO HOME. Objective Data Labs CBC & Chem 7: 11/13/20 05:46 11/13/20 05:46 Labs: Laboratory Results - last 24 hr 11/13/20 11/13/20 05:46 05:46 WBC 15.7 H RBC 5.50 Hgb 15.7 Hct 46.5 MCV 84.5 MCH 28.5 MCHC 33.8 RDW 13.2 Plt Count 267 MPV 10.6 Immature Gran % (Auto) 0.9 H Neut % (Auto) 91.8 H Lymph % (Auto) 5.0 L [place] % (Auto) 2.2 Eos % (Auto) 0.0 Baso % (Auto) 0.1 Lymph # (Auto) 0.8 L [place] # (Auto) 0.3 Eos # (Auto) 0.0 Baso # (Auto) 0.0 Abs Immat Gran (auto) 0.14 H Absolute Neuts (auto) 14.4 H Absolute Nucleated RBC 0.000 Nucleated RBC % (auto) 0.0 Smear Tech's Comments VERIFIED Sodium 138 Potassium 4.7 D Chloride 108 Carbon Dioxide 20 L Anion Gap 15 BUN 18 H D Creatinine 0.81 Estim Creat Clear Calc 98.5 Estimated GFR > 60 Fasting Glucose 105 H Calcium 9.9 Physical Exam Vital Signs: Vital Signs: Last Vital Signs Temp 98.2 F 11/13/20 07:40 Pulse 95 11/13/20 07:42 Resp 18 11/13/20 07:40 BP 113/67 11/13/20 07:40 Pulse Ox 92 11/13/20 07:40 Body Mass Index 17.2 Const: Other: DOES NOT HAVE ANY RESPIRATORY DISTRESS, HE IS CHRONICALLY OF A THIN BUILD. General: comfortable, no acute distress, alert and awake Orientation/consciousness: patient oriented x3 HENMT: Head: Yes normal to inspection General nose exam: No nasal polyps present and No nasal discharge present Face and sinus: Yes sinuses nontender Mouth: oropharynx normal Throat: Yes posterior oropharynx normal Eyes: General: appearance normal, both eyes and all related structures Neck: Neck: Yes normal visual inspection, Yes no lymphadenopathy, Yes trachea midline and Yes no JVD Thyroid: Thyroid normal Chest: Chest palpation & inspection: normal inspection of the chest and normal palpation of entire chest wall Resp: Other: HAS GOOD BREATH SOUNDS ON BOTH SIDES, SLIGHTLY DISTANT, NO WHEEZES RHONCHI OR CREPITATIONS ARE HEARD THIS MORNING Auscultation: crac kles and wheezes Cardio: Palpation: normal PMI Rate: regular rate Rhythm: regular rhythm Heart sounds: no gallops and no murmurs Peripheral pulses: Peripheral pulses 2+ throughout GI: Palpation (GI): Soft to palpation, nontender, No hepatosplenomegaly present and no masses Auscultation: normal bowel sounds Back/Spine/Pelvis: Thoracic/Lumbar Spine: thoracic and lumbar spine normal to inspection Skin: General skin exam: no rashes or lesions noted Neuro: General: patient oriented x3 and no focal motor deficits Cranial nerves: Yes CN's II-XII intact bilaterally Extrem: General: Yes normal to inspection, Yes no clubbing, cyanosis or edema, Yes no calf tenderness and Yes venous stasis dermatitis Psych: Speech and movement: Normal speech and movement present Assessment and Plan Assessment and plan (1) Asthma with acute exacerbation: Problem details: ACUTE EXACERBATION IS DEFINITELY IMPROVED. HE SHOULD BE STARTED ON PREDNISONE 40 MG A DAY FOR THE NEXT 5 DAYS. CONTINUE BREO-201 INHALATION DAILY AND PROAIR 2 PUFFS Q 4-6 HOURS P.R.N.. HE NEEDS THE SHORT-TERM FOLLOW-UP. PATIENT WILL TRY TO MAKE APPOINTMENT WITH HIS ASTHMA SPECIALIST TO IN [place] SOON POSSIBLE. ALTERNATELY I HAVE OFFERED HIM THAT HE CAN MAKE APPOINTMENT WITH THE PULMONARY OFFICE AND WE WILL BE GLAD TO FOLLOW HIM ALONG. IN ANY CASE HE SHOULD BE SEEN IN ABOUT 1 WEEK FOR FOLLOW-UP. Status: Acute Time Spent With Patient Time: Total time spent is greater than 50% in coordination of care (as documented) at patient's floor/unit and/or counseling patient: Time with patient: 15 - 24 minutes
--- NOTE | 2020-11-13 11:41 | HO.PM.IMPN ---
Subjective Subjective Date of Service: 11/13/20 Interval History: improved, but hypoxic today Cardiovascular Cardiovascular: Reports no additional cardiovascular complaints Gastrointestinal Gastrointestinal: Reports no additional gastrointestinal complaints Physical Exam Vital Signs: Vital Signs: Last Vital Signs Temp 98.2 F 11/13/20 07:40 Pulse 95 11/13/20 07:42 Resp 18 11/13/20 07:40 BP 113/67 11/13/20 07:40 Pulse Ox 92 11/13/20 07:40 Body Mass Index 17.2 General: AO X 3, no acute distress Resp: diminished CVS: S1,S2,RRR GI: soft, non tender, non distended Neuro: motor grossly intact Psych: appropriate affect Objective Data Current Medications Generic Name Dose Route Start Last Admin Trade Name Freq PRN Reason Stop Dose Admin Acetaminophen 650 mg 11/11/20 02:45 11/13/20 06:41 Acetaminophen 325 Mg Tablet PO 650 mg Q6H PRN Administration Pain, Mild (Pain Scale 1-3) Famotidine 20 mg 11/11/20 09:00 11/13/20 08:33 Famotidine 20 Mg Tablet PO 20 mg DAILY ARLIN Administration Guaifenesin/Codeine Phosphate 5 ml 11/11/20 16:30 11/12/20 07:46 Guaifen/Codeine Sf 200/20/10ml 10 Ml Liquid PO 5 ml Q4H PRN Administration Cough Levalbuterol HCl 1.25 mg 11/12/20 08:00 11/13/20 07:41 Levalbuterol Hcl 1.25 Mg/0.5 Ml Vial.Neb INHALE 1.25 mg RTID ARLIN Administration Levalbuterol HCl 1.25 mg 11/12/20 02:07 11/13/20 00:25 Levalbuterol Hcl 1.25 Mg/0.5 Ml Vial.Neb INHALE 1.25 mg Q3H PRN Administration Shortness of Breath/Wheezing Methylprednisolone Sodium Succinate 40 mg 11/11/20 08:00 11/13/20 08:33 Methylprednisolone Sod Succ 40 Mg/Ml Vial IVPUSH 40 mg Q8H ARLIN Administration Nicotine 14 mg 11/11/20 11:00 11/13/20 08:33 Nicotine 14 Mg Patch.Td24 TRANSDERMA 14 mg DAILY ARLIN Administration Sodium Chloride 3 ml 11/11/20 08:00 04/29/21 08:34 0.9 % Sodium Chloride Flush 3 Ml Syringe IVFLUSH 3 ml QSHIFT ARLIN Administration Labs CBC & Chem 7: 11/13/20 05:46 11/13/20 05:46 Assessment and Plan (1) Asthma with acute exacerbation: Problem details: ACUTE EXACERBATION IS DEFINITELY IMPROVED. HE SHOULD BE STARTED ON PREDNISONE 40 MG A DAY FOR THE NEXT 5 DAYS. CONTINUE BREO-201 INHALATION DAILY AND PROAIR 2 PUFFS Q 4-6 HOURS P.R.N.. HE NEEDS THE SHORT-TERM FOLLOW-UP. PATIENT WILL TRY TO MAKE APPOINTMENT WITH HIS ASTHMA SPECIALIST TO IN [place] SOON POSSIBLE. ALTERNATELY I HAVE OFFERED HIM THAT HE CAN MAKE APPOINTMENT WITH THE PULMONARY OFFICE AND WE WILL BE GLAD TO FOLLOW HIM ALONG. IN ANY CASE HE SHOULD BE SEEN IN ABOUT 1 WEEK FOR FOLLOW-UP. Status: Acute Assessment and Plan: 25M presented with sob acute asthma exacerbation complicated by acute hypoxic respiratory failure continue steroids, xopenex will hold until no longer hypoxic on dc will add breo smoking cesssatatan - nicoderm
--- NOTE | 2020-11-13 13:38 | P.DS_ITS ---
DS: Providers Provider Date of Service: 11/13/20 Date of admission: 11/11/20 02:45 Primary care physician: Bridgette Kinney MD Consults: 11/12/20 02:04 Consult to Cardiology Routine Consulting Provider: Nabil Rene Reason for consultation: tachycardia 11/12/20 02:10 Consult to Pulmonology Routine Consulting Provider: Tiffany Shah Reason for consultation: Asthma exacerbation DS: Diagnosis Discharge Diagnosis (1) Asthma with acute exacerbation: Status: Acute Problem details: ACUTE EXACERBATION IS DEFINITELY IMPROVED. HE SHOULD BE STARTED ON PREDNISONE 40 MG A DAY FOR THE NEXT 5 DAYS. CONTINUE BREO-201 INHALATION DAILY AND PROAIR 2 PUFFS Q 4-6 HOURS P.R.N.. HE NEEDS THE SHORT-TERM FOLLOW-UP. PATIENT WILL TRY TO MAKE APPOINTMENT WITH HIS ASTHMA SPECIALIST TO IN [place] SOON POSSIBLE. ALTERNATELY I HAVE OFFERED HIM THAT HE CAN MAKE APPOINTMENT WITH THE PULMONARY OFFICE AND WE WILL BE GLAD TO FOLLOW HIM ALONG. IN ANY CASE HE SHOULD BE SEEN IN ABOUT 1 WEEK FOR FOLLOW-UP. DS: Medications Discharge Medications Home Medications: Previous Rx's Medication Instructions Recorded albuterol sulfate 2 puff INHALATION Q4-6H PRN 5 Days 11/10/20 #8.5 g albuterol sulfate 2.5 mg INHALATION Q4H PRN #75 ml 11/10/20 fluticasone furoate-vilanterol 1 inh INHALATION Q24H #60 ea 11/13/20 [Breo Ellipta] prednisone 40 mg PO DAILY #10 tab 11/13/20 DS: Summary Hospital Course Hospital Course: patient was admitted for acute hypoxic respiratory failure due to asthma exacerbation. he was treated with steroids and bronchodilators. his symptoms improved. he was able to ambulate on room air with minimal symptoms. he will be discharged home on prednisone and breo. he should follow up with pulmonary as outpaitnet and stop smoking. Time Spent with Patient Time attestation: Total time spent providing and/or coordinating discharge services: Discharge coordination time: Greater than 30 minutes Physical Exam Vital Signs: Vital Signs: Last Vital Signs Temp 98.1 F 11/13/20 11:50 Pulse 89 11/13/20 11:50 Resp 18 11/13/20 11:50 BP 148/93 H 11/13/20 11:50 Pulse Ox 93 11/13/20 11:50 Body Mass Index 17.2 General: AO X 3, no acute distress Resp: diminished CVS: S1,S2,RRR GI: soft, non tender, non distended Neuro: motor grossly intact Psych: appropriate affect DS: Data Data Completed and Pending Labs on day of discharge: Laboratory Results - last 24 hr 11/13/20 11/13/20 05:46 05:46 WBC 15.7 H RBC 5.50 Hgb 15.7 Hct 46.5 MCV 84.5 MCH 28.5 MCHC 33.8 RDW 13.2 Plt Count 267 MPV 10.6 Immature Gran % (Auto) 0.9 H Neut % (Auto) 91.8 H Lymph % (Auto) 5.0 L [place] % (Auto) 2.2 Eos % (Auto) 0.0 Baso % (Auto) 0.1 Lymph # (Auto) 0.8 L [place] # (Auto) 0.3 Eos # (Auto) 0.0 Baso # (Auto) 0.0 Abs Immat Gran (auto) 0.14 H Absolute Neuts (auto) 14.4 H Absolute Nucleated RBC 0.000 Nucleated RBC % (auto) 0.0 Smear Tech's Comments VERIFIED Sodium 138 Potassium 4.7 D Chloride 108 Carbon Dioxide 20 L Anion Gap 15 BUN 18 H D Creatinine 0.81 Estim Creat Clear Calc 98.5 Estimated GFR > 60 Fasting Glucose 105 H Calcium 9.9 Discharge Plan Discharge Patient Disposition: Home, Self-Care Discharge Diagnosis: asthma Referrals: Po,Bridgette Ryan MD [Primary Care Provider] - 1 Week Discharge Medications: New prednisone 20 mg tablet 40 mg PO DAILY Qty: 10 RF: 0 Breo Ellipta 100-25 mcg/dose blister with device 1 inh inhalation Q24H Qty: 60 RF: 0 Continued albuterol sulfate 90 mcg/actuation HFA aerosol inhaler 2 puff inhalation Q4-6H PRN (Reason: shortness of breath or wheezing) 5 Days Qty: 8.5 RF: 0 albuterol sulfate 2.5 mg /3 mL (0.083 %) solution for nebulization 2.5 mg inhalation Q4H PRN (Reason: shortness of breath or wheezing) Qty: 75 RF: 0 Discontinued azithromycin 250 mg tablet 1 tab PO DIRECTED RF: 0 prednisone 20 mg tablet 3 tab PO DAILY RF: 0 Discharge Orders: Discharge Order (Routine); Ordered 11/13/20 Ordered By: Nico Puente Activity on Discharge: As tolerated Stand Alone Forms: Patient Portal Discharge page Care Plan Goals: recovery Health Concerns: asthma Plan of Treatment: steroids, follow up with pulm, stop smoking Assessment: see above
--- NOTE | 2020-11-13 13:56 | MHC.CM.PN ---
DP Pt is dc home today. Patient was able to tolerate activity. He was ambulated x2 with SPO2 monitor. His oxygen level with activity 94-96%. His heart rate with activity did increase. Pulse 90s- 117. He recovered quickly both Oxygen level and heart rate, to WNL. Discharge to home with family support. Family is providing transportation to home.
== END 2020-11-13 15:47 | disposition home or self-care (01) | DRG 141 ==
LOC: HO.ED 11-11 01:11 → HO.EDOVER 11-11 03:05 → HO.IMC 11-11 19:04
PROVIDERS: Nurse Practitioner Family; Admitting Provider Hospitalist; Emergency Provider Internal Medicine; PCP Internal Medicine; Visit Provider Internal Medicine
DX: J45.41 Moderate persistent asthma with (acute) exacerbation (principal); J96.01 Acute respiratory failure with hypoxia; R00.0 Tachycardia, unspecified; T48.6X5A Adverse effect of antiasthmatics, initial encounter; Y92.239 Unspecified place in hospital as the place of occurrence of the external cause; Z20.822 Contact with and (suspected) exposure to COVID-19; Z88.0 Allergy status to penicillin
CPT/HCPCS: 36415; 80048; 83735; 84443; 85025; 85379; 87635; 93005; 94640; 94644; 96365; 96366; 96375; 99219; 99285; J2920; J3475

== ENCOUNTER 2023-06-16 02:06 | Emergency (ER) | payer BC, SELFPAY ==
--- NOTE | ~2023-06-16 | XR_ITS ---
EXAMINATION: XR ANKLE, RIGHT CLINICAL INFORMATION: Fall COMPARISON: None available. TECHNIQUE: AP, lateral, and mortise views of the right ankle. FINDINGS: Osseous alignment is anatomic. No acute fracture is seen. No significant focal soft tissue abnormality identified. XR/XR ankle RT min 3V IMPRESSION: No acute findings.
[2023-06-16 02:14] VITALS: BP 113/79; PULSE 95; RESP 18; TEMP 36.8; O2SAT 95; BMI 17.2
[2023-06-16 05:21] VITALS: BP 123/78; PULSE 77; RESP 18; TEMP 36.5; O2SAT 98
--- NOTE | 2023-06-16 06:35 | ED_ITS ---
HPI - Extremity Injury (Lower) General Chief Complaint: Extremity Injury, Lower Stated Complaint: ankle inj Time Seen by Provider: 06/16/23 06:27 Source: patient Mode of arrival: ambulatory History of Present Illness HPI Narrative: 27-year-old male caught his right foot under the couch and fell forward and now complains of pain to the top of his foot. Related Data Previous Rx's Medication Instructions Recorded albuterol sulfate 2.5 mg/3 mL 2.5 mg (3 mL) inhalation Q4H PRN 12/29/20 (0.083 %) solution for nebulization for wheezing #75 mL albuterol sulfate 90 mcg/actuation 2 puff inhalation Q4-6H PRN for 05/19/21 aerosol inhaler (ProAir HFA) wheezing #8.5 grams montelukast 10 mg tablet 10 mg PO BEDTIME #90 tabs 12/15/21 (Singulair) fluticasone 250 mcg-salmeterol 50 1 inh inhalation BID #60 ea 02/25/22 mcg/dose blistr powdr for inhalation (Wixela Inhub) Allergies Allergy/AdvReac Type Severity Reaction Status Date / Time amoxicillin Allergy Unknown Anaphylaxis Verified 11/10/20 14:34 mold Allergy Unknown UNKNOWN Verified 11/10/20 14:34 penicillin V Allergy Unknown Anaphylaxis Verified 11/10/20 14:34 Penicillins [PENICILLINS] Allergy Unknown UNKNOWN Verified 11/10/20 14:34 cillins Allergy Unknown anaphylaxis Uncoded 04/05/13 00:00 Review of Systems Review of Systems: Pertinent positives and negatives as stated in the HPI [facility] Past Medical History Source: nursing notes reviewed Medical History Lung collapse C4 cervical fracture Vitamin D deficiency Tobacco abuse Asthma Surgical History History of exploratory laparotomy Hx of appendectomy Social History Social History Household Members: Other Household Members Other:: Mother Housing: Apartment Do you presently have visiting nurse or other home services: No Alcohol intake: never Cigarettes Per Day: 4 Second Hand Smoke Exposure: Yes Advance Directives: No Advance Directives Information Provided: No service: No Current occupational status: employed Physical Exam Vital Signs: Vital Signs: Last Vital Signs Temp 97.7 F 06/16/23 05:21 Pulse 64 06/16/23 06:41 Resp 18 06/16/23 06:41 BP 127/81 06/16/23 06:41 Pulse Ox 97 06/16/23 06:41 O2 Del Method Room Air 06/16/23 06:41 BMI result Body Mass Index 17.2 VITAL SIGNS: Reviewed. GENERAL: Well developed, well nourished, in no acute distress. HEAD: Normocephalic/atraumatic EYES: PERRLA, EOMI EARS: Ext canals without abnormality LUNGS: Normal breath sounds. No adventitious sounds or accessory muscle use. SpO2<97> CARDIOVASCULAR: Regular rate and rhythm without noted murmurs ABDOMEN: Soft, non-tender, non-distended with bowel sounds. MUSCULOSKELETAL: No tenderness, deformities, or effusions noted on gross inspection. EXTREMITIES: No cyanosis, clubbing or edema. RIGHT FOOT: No medial or lateral malleoli tenderness to palpation, there is tenderness to palpation at the dorsal aspect of the right foot but otherwise pulses are palpable DP and PT with good capillary refill no obvious deformities. SKIN: Inspection of the skin reveals no rashes NEUROLOGIC: Alert and oriented x 4. Strength and sensation to light touch were grossly intact x 4. Medications Administered Discontinued Medications Generic Name Dose Route Start Last Admin Trade Name Freq PRN Reason Stop Dose Admin Acetaminophen 975 mg 06/16/23 06:35 06/16/23 06:40 Acetaminophen 325 Mg Tablet PO 06/16/23 06:36 975 mg ONCE ONE Administration Ibuprofen 400 mg 06/16/23 06:35 06/16/23 06:40 Ibuprofen 400 Mg Tablet PO 06/16/23 06:36 400 mg ONCE ONE Administration Medical Decision Making Medical Decision Making MDM Narrative: 27-year-old male with history and clinical presentation of right foot sprain due to extreme passive plantar flexion. X-ray negative for any fracture or dislocation. Patient placed in Carmine wrap and discharged home with instructions to use Tylenol and ibuprofen for pain control and follow-up with his primary care doctor. Differential Diagnosis Differential Diagnoses: The differential diagnosis associated with the presentation includes Please see the discussion above Admission/Observation Consideration of admission/observation: Escalation of care including admission/observation considered Please see the discussion above Radiology Impression Discussion of test interpretation with radiology: I have reviewed the radiologist's reading. Radiologist Impression: Please see the discussion above Discharge Plan Discharge Clinical Impression: Foot sprain Patient Disposition: Home, Self-Care Instructions: Foot Sprain (ED), R.I.C.E. Treatment (ED), Ice Pack Application (ED) Additional Instructions: 1. Recommend [id number] Tylenol/ibuprofen as needed for pain control. Apply ice for 5-10 minutes, 3 to 4 times a day. 2. Follow-up with your primary care doctor. Return to the ER for any worsening symptoms. Prescriptions: No Action albuterol sulfate 2.5 mg /3 mL (0.083 %) solution for nebulization 2.5 mg inhalation Q4H PRN (Reason: for wheezing) Qty: 75 1RF albuterol sulfate [ProAir HFA] 90 mcg/actuation HFA aerosol inhaler 2 puff inhalation Q4-6H PRN (Reason: for wheezing) Qty: 8.5 0RF montelukast [Singulair] 10 mg tablet 10 mg PO BEDTIME Qty: 90 5RF fluticasone propion-salmeterol [Wixela Inhub] 250-50 mcg/dose blister with device 1 inh inhalation BID Qty: 60 11RF Stand Alone Forms: Work/School Release Interventions: ED Discharge Assessment Last Done: 06/16/23 06:47 Discharge Date/Time: 06/16/23 06:48
[2023-06-16] MEDS: Ibuprofen 400 MG TABLET PO (06:40)
[2023-06-16] MEDS: Acetaminophen 325 MG TABLET 975 MG PO (06:40)
[2023-06-16 06:41] VITALS: BP 127/81; PULSE 64; RESP 18; O2SAT 97
== END 2023-06-16 06:48 | disposition home or self-care (01) ==
PROVIDERS: Emergency Provider Student in an Organized Health Care Education/Training Program
DX: M79.671 Pain in right foot (principal)
CPT/HCPCS: 73610; 99283; 99284

== ENCOUNTER 2024-03-12 13:41 | Emergency (ER) | payer BC, OTHER, SELFPAY ==
[2024-03-12 14:01] VITALS: BP 90/58; PULSE 69; RESP 16; TEMP 36.6; O2SAT 100; BMI 14.6
--- NOTE | 2024-03-12 14:02 | ED_ITS ---
HPI - General Adult General Chief complaint: Upper Respiratory Symptoms Stated complaint: sore throat Time Seen by Provider: 03/12/24 17:17 Source: patient and family (patient's mother) Mode of arrival: ambulatory Limitations: no limitations History of Present Illness ED Provider: Sylvie Shukla PA-C HPI narrative: Patient is a 28 year old assigned male at with a history of asthma p resenting to the emergency department today with a sore throat. Patient states that he has been having a sore throat and has been around multiple sick coworkers. Patient denies any dizziness, lightheadedness, abdominal pain, nausea, vomiting, fever, chills, blurry vision, double vision, loss of vision, chest pain, difficulty breathing, shortness of breath, back pain, night sweats, pain with urination, increased urinary frequency, increased urinary urgency, blood in his urine or stool, syncope or a near syncopal episode, recent trauma or falls, bowel incontinence, bladder incontinence, or any other complaints at this time. Relieving factors: none Exacerbating factors: none Associated symptoms: denies other symptoms Treatments prior to arrival: none Related Data Previous Rx's ?Medication ?Instructions ?Recorded albuterol sulfate 2.5 mg/3 mL 2.5 mg (3 mL) inhalation Q4H PRN 12/29/20 (0.083 %) solution for nebulization for wheezing #75 mL albuterol sulfate 90 mcg/actuation 2 puff inhalation Q4-6H PRN for 05/19/21 aerosol inhaler (ProAir HFA) wheezing #8.5 grams montelukast 10 mg tablet 10 mg PO BEDTIME #90 tabs 12/15/21 (Singulair) fluticasone 250 mcg-salmeterol 50 1 inh inhalation BID #60 ea 02/25/22 mcg/dose blistr powdr for inhalation (Wixela Inhub) Allergies Allergy/AdvReac Type Severity Reaction Status Date / Time amoxicillin Allergy Unknown Anaphylaxis Verified 03/12/24 14:03 mold Allergy Unknown UNKNOWN Verified 03/12/24 14:03 penicillin V Allergy Unknown Anaphylaxis Verified 03/12/24 14:03 Penicillins [PENICILLINS] Allergy Unknown UNKNOWN Verified 03/12/24 14:03 cillins Allergy Unknown anaphylaxis Uncoded 04/05/13 00:00 Review of Systems Constitutional: Constitutional: Reports no additional constitutional complaints, Denies chills, Denies fever(s) and Denies night sweats Eyes: Eyes: Reports no additional eye complaints, Denies blurry vision, Denies change in vision, Denies diplopia, Denies eye discharge, Denies loss of vision and Denies eye pain ENT: Denies dizziness and Reports sore throat Cardiovascular: Cardiovascular: Reports no additional cardiovascular complaints, Denies chest pain, Denies lightheadedness, Denies Loss of Consciousness and Denies dyspnea Respiratory: Respiratory: Reports no additional respiratory complaints and Denies dyspnea Gastrointestinal: Gastrointestinal: Reports no additional gastrointestinal complaints, Denies abdominal pain, Denies melena, Denies hematochezia, Denies change in bowel habits and Denies change in stool character Genitourinary: Genitourinary: Reports no additional male genitourinary co mplaints, Denies hematuria, Denies oliguria, Denies difficulty urinating, Denies dysuria, Denies urinary frequency, Denies urinary hesitancy, Denies urinary incontinence and Denies urinary urgency Musculoskeletal: Musculoskeletal: Reports no additional musculoskeletal complaints, Denies numbness and Denies tingling Neurologic: Denies dizziness, Denies loss of vision, Denies numbness and Denies tingling Psychiatric: Psychiatric: Reports no additional psychiatric complaints Endocrine: Endocrine: Reports no additional endocrine complaints Hematologic/Lymphatic: Hematologic/Lymphatic: Reports no additional hematologic/lymphatic complaints Allergic/Immunologic: Allergic/Immunologic: Reports no additional allergic/immunologic complaints [facility] Past Medical History Attestation statement: The following information was validated with the patient. (all information validated with the patient's mother) Source: old records reviewed, obtained from family (patient's mother provided additional history and confirmed the history provided by the patient.) and nursing notes reviewed Medical History Lung collapse C4 cervical fracture Vitamin D deficiency Tobacco abuse Asthma Surgical History History of exploratory laparotomy Hx of appendectomy Social History Social History Household Members: Other Household Members Other:: Mother Housing: Apartment Do you presently have visiting nurse or other home services: No Alcohol intake: never Cigarettes Per Day: 4 Second Hand Smoke Exposure: Yes Advance Directives: No Advance Directives Information Provided: No service: No Current occupational status: employed Physical Exam ED Vital Signs: Vital Signs - 24 hr 03/12/24 14:01 03/12/24 17:27 Temperature 98 F 0 F L Pulse Rate 69 0 L Respiratory Rate 16 0 L Blood Pressure 90/58 L 00/00 L Pulse Oximetry 100 0 L Oxygen Delivery Method Room Air BMI result Body Mass Index 14.6 Const General: cooperative, no acute distress, alert and awake Nutritional Appearance: well nourished Orientation/consciousness: patient oriented x3 Limitations: no limitations HENMT Head: Yes normal to inspection and Yes atraumatic Ears: hearing grossly normal bilaterally and external ears normal General nose exam: Normal external nose present, no nasal discharge noted and no epistaxis Face and sinus: Yes normal facial exam, No abrasion and No laceration Mouth: Normal oral and palatal mucosa present, no drooling and no muffled voice Eyes General: appearance normal, both eyes and all related structures Periorbital: periorbital findings normal Eyelids: Yes eyelids normal Conjunctivae: conjunctivae normal Pupils: Equal, round and reactive pupils present EOM: EOMs intact bilaterally Neck Neck: Yes normal visual inspection, Yes full ROM and Yes no lymphadenopathy Chest Chest palpation & inspection: normal inspection of the chest Resp Effort & Inspection: normal respiratory effort and able to speak in complete sentences GI Inspection: Yes normal to inspection Neuro General: patient oriented x3 and moves all extremities Cranial nerves: Yes Equal, round and reactive pupils present Cognition (Neuro): normal cognition Extrem General: Yes normal to inspection, Yes full ROM and Yes capillary refill normal Psych Appearance: grossly normal Mental Status: mental status grossly normal Affect: normal affect Attitude: cooperative Thought process: Normal thought process present Thought content: Normal thought content present Insight: Good insight present (Psych) Course Course Course Narrative: RME performed by Sylvie Shukla PA-C. Patient is a 28 year old assigned male at presenting to the emergency department with a sore throat. Patient states over the last few days he has had a sore throat. Detailed physical exam and review of systems are deferred to the investigator operator. Swabs ordered. Patient placed back in the waiting room pending room availability and results. Medical Decision Making Medical Decision Making MDM Narrative: Patient is a 28 year old assigned male at with a history of asthma presenting to the emergency department today with a sore throat. Patient's physical exam was unremarkable. Patient's COVID-19, influenza, RSV, and strep tests were all negative. I explained my physical exam findings as well as all test results to the patient and the patient's mother. I answered all questions asked by the patient and the patient's mother. I stressed the importance of the patient taking his medication as directed (either prescribed or as the over the counter packaging recommends). I stressed the importance of the patient following up with his primary care provider. I stressed the importance of the patient returning to the emergency department immediately if his symptoms were to worsen or if he were to develop any dizziness, shortness of breath, difficulty breathing, chest pain, blurry vision, loss of vision, nausea, vomiting, abdominal pain, fever, chills, back pain, or any other complaints. Patient and the patient's mother verbalized agreement and understanding with this treatment plan and discharge. Differential Diagnosis Differential Diagnoses: The differential diagnosis associated with the presentation includes Sore throat Pharyngitis COVID-19 Influenza RSV Viral illness Admission/Observation Consideration of admission/observation: Escalation of care including admission/observation considered Patient would have been admitted to the hospital had his work up had any findings where hospital admission was appropriate and his clinical presentation warranted hospital admission. Lab Data [facility] Lab Attestation statement: I reviewed the patient's lab results. My interpretation of these results are in the [facility] Rationale portion of this note. Labs: Lab Results 03/12/24 Range/Units 14:11 Influenza Type A (PCR) NEGATIVE (Negative) Influenza Type B (PCR) NEGATIVE (Negative) RSV RNA Qual (PCR) NEGATIVE (Negative) SARS-CoV-2 RNA (RT-PCR) NEGATIVE (Negative) S. pyogenes GrpA KELLY Negative (Negative) Independent Historian Clinical information obtained from an independent historian. History obtained from or confirmed by: Parent (patient's mother provided additional history and confirmed the history provided by the patient.) Discharge Plan Discharge Clinical Impression: Pharyngitis, Viral illness Patient Disposition: Home, Self-Care Instructions: Pharyngitis (ED), Viral Syndrome (ED) Additional Instructions: Follow up with your primary care provider. Return to the emergency department immediately if your symptoms worsen or if you develop any dizziness, shortness of breath, difficulty breathing, chest pain, blurry vision, loss of vision, nausea, vomiting, abdominal pain, fever, chills, back pain, or any other complaints. Prescriptions: No Action albuterol sulfate 2.5 mg /3 mL (0.083 %) solution for nebulization 2.5 mg inhalation Q4H PRN (Reason: for wheezing) Qty: 75 1RF albuterol sulfate [ProAir HFA] 90 mcg/actuation HFA aerosol inhaler 2 puff inhalation Q4-6H PRN (Reason: for wheezing) Qty: 8.5 0RF montelukast [Singulair] 10 mg tablet 10 mg PO BEDTIME Qty: 90 5RF fluticasone propion-salmeterol [Wixela Inhub] 250-50 mcg/dose blister with device 1 inh inhalation BID Qty: 60 11RF Referrals: Po,Bridgette Ryan MD [Primary Care Provider] - Stand Alone Forms: Work/School Release Interventions: ED Discharge Assessment Last Done: 03/12/24 17:27 Discharge Date/Time: 03/12/24 17:28 Print Language: Icelandic
[2024-03-12 14:58] LABS: IDNOW Serial# 08D9AD1C; Strep A Nucleic Acid Negative (Negative)
[2024-03-12 15:02] LABS: Influenza A PCR NEGATIVE (Negative); Influenza B PCR NEGATIVE (Negative); Resp Syncy Virus RNA Qual PCR NEGATIVE (Negative); SARS COV2 PCR INHOUSE NEGATIVE (Negative)
[2024-03-12 17:27] VITALS: BP 00/00; PULSE 0; RESP 0; TEMP -17.7; TEMP 0; O2SAT 0
== END 2024-03-12 17:28 | disposition home or self-care (01) ==
PROVIDERS: Physician Assistant Medical; Emergency Provider Internal Medicine; PCP Internal Medicine
DX: J02.9 Acute pharyngitis, unspecified (principal); B34.9 Viral infection, unspecified; Z03.818 Encounter for observation for suspected exposure to other biological agents ruled out
CPT/HCPCS: 0241U; 87651; 99282; 99283